=== PATIENT | male | born 1960 | race Asian ===

== ENCOUNTER 2016-07-21 16:31 | Emergency (ER) | payer OTHER ==
[~2016-07-21] VITALS: Ht 170.2 cm; Wt 111.0 kg
[~2016-07-21 16:31] MED LIST: ADV500 IH; CETI-260 PO; DULO60CA44 PO; LAMO100 PO; LISI-660 PO; METFORMIN PO; MONT10TA21 PO; OMEP20 PO
[2016-07-21 16:40] VITALS: BP 115/78
[2016-07-21 16:48] LABS: GLUCOSE,POINT OF CARE 99 MG/DL (70-110)
== END 2016-07-21 21:21 | disposition left against medical advice (07) ==
LOC: EMS 16:32
DX: M79.672 Pain in left foot (principal); M10.9 Gout, unspecified; E11.9 Type 2 diabetes mellitus without complications; I10 Essential (primary) hypertension; F17.210 Nicotine dependence, cigarettes, uncomplicated; F15.90 Other stimulant use, unspecified, uncomplicated; Z53.21 Procedure and treatment not carried out due to patient leaving prior to being seen by health care provider
CPT/HCPCS: 82962

== ENCOUNTER 2016-07-22 14:01 | Emergency (ER) | payer OTHER ==
[~2016-07-22] VITALS: Ht 170.2 cm; Wt 108.0 kg
[2016-07-22 14:16] LABS: GLUCOSE,POINT OF CARE 121 MG/DL (70-110)
[2016-07-22 16:35] VITALS: BP 107/71
[2016-07-22] MEDS ORDERED: IBUPROFEN 600 MG TABLET PO ONE (18:30)
[2016-07-22] MEDS ORDERED: HYDROCODONE/ACETAMINOPHEN 5-325 MG TABLET PO ONE (18:30)
[2016-07-22] MEDS ORDERED: PredniSONE 20 MG TABLET PO ONE (18:30)
== END 2016-07-22 18:56 | disposition home or self-care (01) ==
LOC: EMS 14:03
DX: M10.9 Gout, unspecified (principal); F17.210 Nicotine dependence, cigarettes, uncomplicated; I10 Essential (primary) hypertension; E11.9 Type 2 diabetes mellitus without complications; F15.90 Other stimulant use, unspecified, uncomplicated; Z79.84 Long term (current) use of oral hypoglycemic drugs
CPT/HCPCS: 82962; 99284; 99406; J7512

== ENCOUNTER 2016-08-06 15:38 | Emergency (ER) | payer OTHER ==
[~2016-08-06] VITALS: Ht 170.2 cm; Wt 116.8 kg
[2016-08-06 16:02] LABS: GLUCOSE,POINT OF CARE 122 MG/DL (70-110)
[2016-08-06] MEDS ORDERED: HYDROCODONE/ACETAMINOPHEN 10-325 MG TABLET PO ONE (16:30)
[2016-08-06 17:32] VITALS: BP 109/68
== END 2016-08-06 17:33 | disposition home or self-care (01) ==
LOC: EMS 15:41
DX: S33.5XXA Sprain of ligaments of lumbar spine, initial encounter (principal); M62.830 Muscle spasm of back; E11.9 Type 2 diabetes mellitus without complications; I10 Essential (primary) hypertension; F17.210 Nicotine dependence, cigarettes, uncomplicated; F15.90 Other stimulant use, unspecified, uncomplicated; X58.XXXA Exposure to other specified factors, initial encounter; Y93.89 Activity, other specified; Y92.89 Other specified places as the place of occurrence of the external cause; Y99.8 Other external cause status
CPT/HCPCS: 82962; 99283

== ENCOUNTER 2018-03-26 21:36 | Emergency (ER) | payer OTHER ==
[~2018-03-26] VITALS: Ht 170.2 cm; Wt 106.8 kg
[~2018-03-26 21:36] MED LIST changes: -CETI-260 PO; +CETI-290 PO
[2018-03-26 22:00] VITALS: BP 104/75
[2018-03-26 22:08] LABS: GLUCOSE,POINT OF CARE 124 MG/DL (70-110)
[2018-03-26] MEDS: ACETAMINOPHEN 500 MG TABLET PO ONE (23:37)
[2018-03-26] MEDS: IBUPROFEN 600 MG TABLET PO ONE (23:37)
== END 2018-03-26 23:42 | disposition home or self-care (01) ==
LOC: EMS 21:37
DX: M54.5 Low back pain (principal); I10 Essential (primary) hypertension; E11.9 Type 2 diabetes mellitus without complications; E78.00 Pure hypercholesterolemia, unspecified; F32.9 Major depressive disorder, single episode, unspecified; F12.90 Cannabis use, unspecified, uncomplicated; Z79.84 Long term (current) use of oral hypoglycemic drugs

== ENCOUNTER 2018-08-10 00:18 | Emergency (ER) | payer OTHER ==
[~2018-08-10] VITALS: Ht 170.2 cm; Wt 106.4 kg
[~2018-08-10 00:18] MED LIST changes: -CETI-290 PO; +CETI10TA59 PO
[2018-08-10] MEDS ORDERED: METF-960 PO (00:31)
[2018-08-10] MEDS ORDERED: GLIP5 PO (00:31)
[2018-08-10 01:02] LABS: AMPHET/METH SCREEN,URINE NEGATIVE (NEGATIVE); BARBITURATE SCREEN, URINE NEGATIVE (NEGATIVE); BENZODIAZEPINES SCREEN,URINE NEGATIVE (NEGATIVE); CANNABINOID SCREEN,URINE NEGATIVE (NEGATIVE); COCAINE SCREEN,URINE NEGATIVE (NEGATIVE); METHADONE SCREEN, URINE NEGATIVE (NEGATIVE); OPIATE SCREEN,URINE NEGATIVE (NEGATIVE); PHENCYCLIDINE SCREEN,URINE NEGATIVE (NEGATIVE)
[2018-08-10 01:03] LABS: APPEARANCE,URINE CLOUDY (CLEAR); BILIRUBIN,URINE NEGATIVE (NEGATIVE); GLUCOSE, URINE (UA) NEGATIVE (NEGATIVE); KETONES,URINE NEGATIVE (NEGATIVE); LEUKOCYTE ESTERASE ,URINE SMALL (NEGATIVE); NITRATE,URINE POSITIVE (NEGATIVE); OCCULT BLOOD,URINE NEGATIVE (NEGATIVE); PH,URINE 5.5 (5.0-8.0); PROTEIN,URINE NEGATIVE (NEGATIVE); UROBILINOGEN,URINE 0.2 mg/dL (<=1.0)
[2018-08-10 01:12] LABS: BASOPHILS % (AUTO) 0.3 % (0.0-2.0); HEMATOCRIT 34.9 % (41-53); HEMOGLOBIN 11.4 g/dL (13.5-17.5); LYMPHOCYTES # (AUTO) 1.5 K/uL (1.0-4.8); LYMPHOCYTES % (AUTO) 16.5 % (22.0-44.0); MEAN CORPUSCULAR HEMOGLOBIN 31.3 pg (26.0-34.0); MEAN CORPUSCULAR HGB CONC 32.5 G/dL (31.0-37.0); MEAN CORPUSCULAR VOLUME 96 fL (80-100); MONOCYTES # (AUTO) 0.4 K/uL (0.1-1.0); MONOCYTES % (AUTO) 4.4 % (2.0-9.0); NEUTROPHILS # (AUTO) 7.2 K/uL (1.8-7.7); NEUTROPHILS % (AUTO) 76.8 % (40.0-70.0); PLATELET COUNT (AUTO) 346 K/uL (150-450); RED BLOOD CELL COUNT(AUTO) 3.63 MIL/uL (4.50-5.90); RED CELL DISTRIBUTION WIDTH 14.9 % (11.5-14.5)
[2018-08-10 01:15] LABS: BACTERIA,URINE Many /HPF (None Seen); RBC,URINE 0-2 /HPF (0-2); SQUAMOUS EPITHELIAL CELL,UR Few /LPF (None Seen)
[2018-08-10 01:26] LABS: ANION GAP 10 mmol/L (8-16); CALCIUM, TOTAL 8.9 mg/dL (8.8-10.5); CARBON DIOXIDE 25 mmol/L (22-29); CHLORIDE 105 mmol/L (98-107); CREATININE 1.05 mg/dL (0.60-1.30); GLOMERULAR FILTR. RATE CALC > 60 mL/min (>60); GLUCOSE,RANDOM 110 mg/dL (70-110); POTASSIUM 4.4 mmol/L (3.5-5.1); SODIUM SERUM 140 mmol/L (136-145); UREA NITROGEN, BLOOD 19 mg/dL (7-18)
[2018-08-10 01:32] LABS: ALANINE AMINOTRANSFERASE 27 U/L (12-78); ALBUMIN 3.3 g/dL (3.4-5.0); ALKALINE PHOSPHATASE 62 U/L (46-116); ASPARTATE AMINOTRANSFERASE 17 U/L (15-37); BILIRUBIN,TOTAL 0.2 mg/dL (0.1-1.0); LIPASE 431 U/L (73-393); TOTAL PROTEIN, SERUM 7.2 g/dL (6.4-8.2)
[2018-08-10 01:44] LABS: GLUCOSE,POINT OF CARE 119 MG/DL (70-110)
[2018-08-10] MEDS ORDERED: ONDANSETRON HCL 4 MG/2 ML VIAL IM ONE (04:00)
[2018-08-10 04:30] VITALS: BP 114/70
== END 2018-08-10 05:03 | disposition home or self-care (01) ==
LOC: EMS 00:20
DX: K29.20 Alcoholic gastritis without bleeding (principal); F10.188 Alcohol abuse with other alcohol-induced disorder; F32.9 Major depressive disorder, single episode, unspecified; E11.9 Type 2 diabetes mellitus without complications; E78.00 Pure hypercholesterolemia, unspecified; I10 Essential (primary) hypertension; F12.90 Cannabis use, unspecified, uncomplicated; F15.90 Other stimulant use, unspecified, uncomplicated; Y90.9 Presence of alcohol in blood, level not specified
CPT/HCPCS: 36415; 80053; 80307; 81001; 82962; 83690; 84484; 85025; 87077; 87086; 87186; 93005; 96372; 99284; J2405

== ENCOUNTER 2018-08-15 00:28 | Emergency (ER) | payer OTHER ==
[~2018-08-15] VITALS: Ht 170.2 cm; Wt 106.4 kg
[~2018-08-15 00:28] MED LIST changes: +GLIP5 PO; +METF-960 PO; -METFORMIN PO
[2018-08-15 00:39] LABS: GLUCOSE,POINT OF CARE 75 MG/DL (70-110)
[2018-08-15 01:44] LABS: BASOPHILS % (AUTO) 0.3 % (0.0-2.0); HEMATOCRIT 36.3 % (41-53); HEMOGLOBIN 11.7 g/dL (13.5-17.5); LYMPHOCYTES # (AUTO) 1.6 K/uL (1.0-4.8); LYMPHOCYTES % (AUTO) 26.2 % (22.0-44.0); MEAN CORPUSCULAR HEMOGLOBIN 31.2 pg (26.0-34.0); MEAN CORPUSCULAR HGB CONC 32.3 G/dL (31.0-37.0); MEAN CORPUSCULAR VOLUME 97 fL (80-100); MONOCYTES # (AUTO) 0.6 K/uL (0.1-1.0); MONOCYTES % (AUTO) 10.2 % (2.0-9.0); NEUTROPHILS # (AUTO) 3.7 K/uL (1.8-7.7); NEUTROPHILS % (AUTO) 61.3 % (40.0-70.0); PLATELET COUNT (AUTO) 264 K/uL (150-450); RED BLOOD CELL COUNT(AUTO) 3.76 MIL/uL (4.50-5.90); RED CELL DISTRIBUTION WIDTH 15.1 % (11.5-14.5)
[2018-08-15 01:48] LABS: APPEARANCE,URINE CLEAR (CLEAR); BILIRUBIN,URINE NEGATIVE (NEGATIVE); GLUCOSE, URINE (UA) NEGATIVE (NEGATIVE); KETONES,URINE NEGATIVE (NEGATIVE); LEUKOCYTE ESTERASE ,URINE MODERATE (NEGATIVE); NITRATE,URINE NEGATIVE (NEGATIVE); OCCULT BLOOD,URINE NEGATIVE (NEGATIVE); PROTEIN,URINE NEGATIVE (NEGATIVE)
[2018-08-15 01:54] LABS: ANION GAP 11 mmol/L (8-16); CALCIUM, TOTAL 8.8 mg/dL (8.8-10.5); CARBON DIOXIDE 24 mmol/L (22-29); CHLORIDE 103 mmol/L (98-107); CREATININE 1.23 mg/dL (0.60-1.30); GLOMERULAR FILTR. RATE CALC > 60 mL/min (>60); GLUCOSE,RANDOM 68 mg/dL (70-110); SODIUM SERUM 138 mmol/L (136-145); UREA NITROGEN, BLOOD 17 mg/dL (7-18)
[2018-08-15 01:56] LABS: BACTERIA,URINE Moderate /HPF (None Seen); RBC,URINE 0-2 /HPF (0-2); SQUAMOUS EPITHELIAL CELL,UR Rare /LPF (None Seen); WBC,URINE 51-100 /HPF (0-5)
[2018-08-15 02:00] LABS: ALANINE AMINOTRANSFERASE 24 U/L (12-78); ALBUMIN 3.5 g/dL (3.4-5.0); ALKALINE PHOSPHATASE 71 U/L (46-116); ASPARTATE AMINOTRANSFERASE 19 U/L (15-37); BILIRUBIN,TOTAL 0.3 mg/dL (0.1-1.0); TOTAL PROTEIN, SERUM 7.4 g/dL (6.4-8.2)
[2018-08-15 02:15] LABS: GLUCOSE,POINT OF CARE 76 MG/DL (70-110)
[2018-08-15 03:00] VITALS: BP 131/78
[2018-08-15 03:35] LABS: GLUCOSE,POINT OF CARE 83 MG/DL (70-110)
[2018-08-15] MEDS ORDERED: OMEP20 PO (21:44)
[2018-08-15] MEDS ORDERED: ONDA4 PO (21:44)
[2018-08-15] MEDS ORDERED: FAMO20 PO (21:44)
[2018-08-15] MEDS ORDERED: VALB80CA PO (21:44)
[2018-08-15] MEDS ORDERED: MONT10TA21 PO (21:44)
[2018-08-15] MEDS ORDERED: VITA100D3 PO (21:44)
[2018-08-15] MEDS ORDERED: LISI-660 PO (21:44)
[2018-08-15] MEDS ORDERED: ALLO300 PO (21:44)
[2018-08-15] MEDS ORDERED: MAG30ORA11 PO (21:44)
[2018-08-15] MEDS ORDERED: DILT60 PO (21:44)
[2018-08-15] MEDS ORDERED: DULO30CA2 PO (21:44)
[2018-08-15] MEDS ORDERED: ADV250 IH (21:44)
== END 2018-08-15 03:35 | disposition home or self-care (01) ==
LOC: EMS 00:31
DX: E11.649 Type 2 diabetes mellitus with hypoglycemia without coma (principal); I10 Essential (primary) hypertension; E78.00 Pure hypercholesterolemia, unspecified; J44.9 Chronic obstructive pulmonary disease, unspecified; F20.9 Schizophrenia, unspecified; Z79.84 Long term (current) use of oral hypoglycemic drugs
CPT/HCPCS: 87086

== ENCOUNTER 2018-08-15 21:30 | Emergency (ER) | payer OTHER ==
[~2018-08-15] VITALS: Ht 170.2 cm; Wt 106.4 kg
[2018-08-15] MEDS ORDERED: LISI-660 PO (21:44)
[2018-08-15] MEDS ORDERED: ALLO300 PO (21:44)
[2018-08-15] MEDS ORDERED: ONDA4 PO (21:44)
[2018-08-15] MEDS ORDERED: MAG30ORA11 PO (21:44)
[2018-08-15] MEDS ORDERED: MONT10TA21 PO (21:44)
[2018-08-15] MEDS ORDERED: DULO30CA2 PO (21:44)
[2018-08-15] MEDS ORDERED: ADV250 IH (21:44)
[2018-08-15] MEDS ORDERED: VITA100D3 PO (21:44)
[2018-08-15] MEDS ORDERED: DILT60 PO (21:44)
[2018-08-15] MEDS ORDERED: OMEP20 PO (21:44)
[2018-08-15] MEDS ORDERED: FAMO20 PO (21:44)
[2018-08-15] MEDS ORDERED: VALB80CA PO (21:44)
[2018-08-15 21:45] LABS: GLUCOSE,POINT OF CARE 63 MG/DL (70-110)
[2018-08-15] MEDS ORDERED: SODIUM CHLORIDE 0.9% 1,000 ML IV ONE ×2 (21:56→23:30)
[2018-08-15] MEDS ORDERED: ONDANSETRON HCL 4 MG/2 ML VIAL IVP ONE (22:00)
[2018-08-15 22:08] LABS: BASOPHILS % (AUTO) 0.5 % (0.0-2.0); EOSINOPHILS % (AUTO) 1.3 % (1.0-6.0); HEMATOCRIT 35.2 % (41-53); HEMOGLOBIN 11.6 g/dL (13.5-17.5); LYMPHOCYTES # (AUTO) 1.7 K/uL (1.0-4.8); MEAN CORPUSCULAR HEMOGLOBIN 31.2 pg (26.0-34.0); MEAN CORPUSCULAR HGB CONC 32.8 G/dL (31.0-37.0); MEAN CORPUSCULAR VOLUME 95 fL (80-100); MONOCYTES # (AUTO) 0.6 K/uL (0.1-1.0); MONOCYTES % (AUTO) 10.4 % (2.0-9.0); NEUTROPHILS # (AUTO) 3.7 K/uL (1.8-7.7); NEUTROPHILS % (AUTO) 60.8 % (40.0-70.0); PLATELET COUNT (AUTO) 264 K/uL (150-450); RED BLOOD CELL COUNT(AUTO) 3.71 MIL/uL (4.50-5.90); RED CELL DISTRIBUTION WIDTH 15.1 % (11.5-14.5)
[2018-08-15 22:17] LABS: ANION GAP 11 mmol/L (8-16); CALCIUM, TOTAL 8.8 mg/dL (8.8-10.5); CARBON DIOXIDE 24 mmol/L (22-29); CHLORIDE 103 mmol/L (98-107); CREATININE 1.12 mg/dL (0.60-1.30); GLOMERULAR FILTR. RATE CALC > 60 mL/min (>60); GLUCOSE,RANDOM 64 mg/dL (70-110); POTASSIUM 4.1 mmol/L (3.5-5.1); SODIUM SERUM 138 mmol/L (136-145); UREA NITROGEN, BLOOD 16 mg/dL (7-18)
[2018-08-15 22:23] LABS: ALANINE AMINOTRANSFERASE 23 U/L (12-78); ALBUMIN 3.6 g/dL (3.4-5.0); ALKALINE PHOSPHATASE 71 U/L (46-116); ASPARTATE AMINOTRANSFERASE 21 U/L (15-37); BILIRUBIN,TOTAL 0.4 mg/dL (0.1-1.0); LIPASE 405 U/L (73-393); TOTAL PROTEIN, SERUM 7.6 g/dL (6.4-8.2)
[2018-08-15 23:05] LABS: GLUCOSE,POINT OF CARE 72 MG/DL (70-110)
[2018-08-15 23:20] LABS: APPEARANCE,URINE CLEAR (CLEAR); BILIRUBIN,URINE NEGATIVE (NEGATIVE); GLUCOSE, URINE (UA) NEGATIVE (NEGATIVE); KETONES,URINE NEGATIVE (NEGATIVE); LEUKOCYTE ESTERASE ,URINE TRACE (NEGATIVE); NITRATE,URINE POSITIVE (NEGATIVE); OCCULT BLOOD,URINE TRACE (NEGATIVE); PROTEIN,URINE NEGATIVE (NEGATIVE)
[2018-08-15 23:25] LABS: AMPHET/METH SCREEN,URINE NEGATIVE (NEGATIVE); BARBITURATE SCREEN, URINE NEGATIVE (NEGATIVE); BENZODIAZEPINES SCREEN,URINE NEGATIVE (NEGATIVE); CANNABINOID SCREEN,URINE NEGATIVE (NEGATIVE); COCAINE SCREEN,URINE NEGATIVE (NEGATIVE); METHADONE SCREEN, URINE NEGATIVE (NEGATIVE); OPIATE SCREEN,URINE NEGATIVE (NEGATIVE)
[2018-08-15 23:26] LABS: PHENCYCLIDINE SCREEN,URINE NEGATIVE (NEGATIVE)
[2018-08-15 23:29] LABS: BACTERIA,URINE Moderate /HPF (None Seen); SQUAMOUS EPITHELIAL CELL,UR Rare /LPF (None Seen)
[2018-08-15] MEDS ORDERED: HydrOXYzine HCL 25 MG TABLET PO ONE (23:30)
[2018-08-16] MEDS ORDERED: HydrOXYzine PAMOATE 25 MG CAPSULE PO ONE (00:15)
[2018-08-16] MEDS ORDERED: CeFAZolin 1 GM/DEXTROSE 50 ML IV ONE (00:15)
[2018-08-16 00:43] VITALS: BP 114/78
[2018-08-16 00:49] LABS: GLUCOSE,POINT OF CARE 93 MG/DL (70-110)
== END 2018-08-16 00:59 | disposition home or self-care (01) ==
LOC: EMS 21:31
DX: N39.0 Urinary tract infection, site not specified (principal); E11.649 Type 2 diabetes mellitus with hypoglycemia without coma; I10 Essential (primary) hypertension; E78.00 Pure hypercholesterolemia, unspecified; J44.9 Chronic obstructive pulmonary disease, unspecified; F32.9 Major depressive disorder, single episode, unspecified; F20.9 Schizophrenia, unspecified; Z79.84 Long term (current) use of oral hypoglycemic drugs; Z79.899 Other long term (current) drug therapy
CPT/HCPCS: 36415; 80053; 80307; 81001; 82962; 83690; 85025; 87077; 87086; 87186; 96361; 96365; 96375; 99283; J0690; J2405; J7030